=== PATIENT | female | born 1980 | race Caucasian/White ===

== ENCOUNTER 2017-06-13 06:05 | Emergency (ER) | payer BC ==
[2017-06-13 06:22] VITALS: TEMP 97.7
--- NOTE | 2017-06-13 08:08 | C.PDOC ---
History Of Present Illness 36 y/o female presents to ED with complaints of sore throat, congestion, chills and subjective fever since yesterday. Pt notes she had strep two year ago and it feels the same. Patient denies chest pain, sob, headache, difficulty swallowing, neck pain, nausea, vomiting, diarrhea or any other complaints at this time. Time Seen by Provider: 06/13/17 07:08 Chief Complaint (Nursing): ENT Problem History Per: Patient History/Exam Limitations: None Onset/Duration Of Symptoms: Days Current Symptoms Are (Timing): Still Present Past Medical History Reviewed: Historical Data, Nursing Documentation, Vital Signs Vital Signs: Last Vital Signs Temp 97.7 F 06/13/17 06:16 Pulse 64 06/13/17 08:21 Resp 18 06/13/17 08:21 BP 130/84 06/13/17 08:21 Pulse Ox 99 06/13/17 10:08 - Medical History PMH: No Chronic Diseases Surgical History: No Surg Hx Family History: States: No Known Family Hx - Social History Hx Tobacco Use: No Hx Alcohol Use: No Hx Substance Use: No - Immunization History Hx Tetanus Toxoid Vaccination: Yes Hx Influenza Vaccination: Yes Hx Pneumococcal Vaccination: Yes Review Of Systems Constitutional: Positive for: Fever, Chills ENT: Positive for: Nose Congestion, Throat Pain Respiratory: Positive for: Cough. Negative for: Shortness of Breath Gastrointestinal: Negative for: Nausea, Vomiting Skin: Negative for: Rash Physical Exam - Physical Exam Appears: Non-toxic, No Acute Distress Skin: Warm, Dry, No Rash Head: Atraumatic, Normacephalic Eye(s): bilateral: Normal Inspection, PERRL, EOMI Ear(s): Left: Normal, Right: TM Erythema Nose: Normal Oral Mucosa: Moist Throat: Erythema, No Exudate Neck: Normal ROM, Supple Lymphatic: Adenopathy (submental) Chest: Symmetrical Cardiovascular: Rhythm Regular Respiratory: Normal Breath Sounds, No Rales, No Rhonchi, No Wheezing Gastrointestinal/Abdominal: Soft, No Tenderness, No Guarding, No Rebound Extremity: Normal ROM, Capillary Refill (<2 seconds) Neurological/Psych: Oriented x3, Normal Speech ED Course And Treatment O2 Sat by Pulse Oximetry: 99 (RA) Pulse Ox Interpretation: Normal Progress Note: Pt afebrile. No respiratory distress. TOlerating PO. Pt instructed to symptomatic treatment and to follow up with PMD in 1-2 days. Disposition - Disposition Disposition: HOME/ ROUTINE Disposition Time: 08:05 Condition: STABLE Additional Instructions: Follow up with your primary medical doctor or clinic in 2-5 days for further evaluation. Take medications as prescribed. Return to the emergency department at any time if symptoms persist or worsen. Prescriptions: Amoxicillin 875 mg PO BID #14 tablet Guaifen/Dextromethorphan/PE [Mucinex Fast-Max Congest-Cough] 1 each PO Q6 #20 tablet Ibuprofen [Motrin] 600 mg PO Q6 PRN #20 tab PRN Reason: Pain, Mild (1-3) Instructions: Sore Throat, Adult (DC) Forms: [facility] (Portuguese), Work Excuse - Clinical Impression Clinical Impression: Pharyngitis - PA / [employer] / Resident Statement MD/DO has reviewed & agrees with the documentation as recorded. - Scribe Statement The provider has reviewed the documentation as recorded by the Daniel Granda All medical record entries made by the Daniel were at my direction and personally dictated by me. I have reviewed the chart and agree that the record accurately reflects my personal performance of the history, physical exam, medical decision making, and the department course for this patient. I have also personally directed, reviewed, and agree with the discharge instructions and disposition.
[2017-06-13 08:22] VITALS: BP 130/84; PULSE 64; RESP 18
[2017-06-13 09:51] VITALS: O2SAT 99
== END 2017-06-13 08:22 | disposition home or self-care (01) ==
LOC: C.ER 06:05
DX: J02.9 Acute pharyngitis, unspecified (principal)